=== PATIENT | female | born 1940 ===

== ENCOUNTER 2016-09-25 23:37 | Emergency (ER) | payer MEDICARE ==
[~2016-09-25] VITALS: Ht 160 cm; Wt 66.7 kg
[~2016-09-25 23:37] MED LIST: AMLO10TA2 PO; ATOR40TA64 PO; CARV25TA2 PO; CLOP75TA33 PO; FLUT16SP NAS; HYDR-4181 PO; HYDR-4246 PO; LISI10TA PO; RANI150T12 PO; SEVE800T9 PO; SUCR1TAB20 PO
--- OUTSIDE RECORDS SUMMARY | 2016-09-25 23:41 | XMS REPORT | Referral Summary ---
Author Organization Unknown Address Unknown Phone Unavailable Care Team Providers Care Arm Rest Builder Name Role Phone [facility] Primary Care Physician Unavailable Encounter [facility] [id number] Date(s): 08/22/14 - 08/22/14 [facility], Rheumatology [address] [place], [place] [address] Discharge Disposition: Home or Self Care Attending Physician: Daphney Gan MD Admitting Physician: Daphney Gan MD Vital Signs Most recent to 1 oldest [Reference Range]: Temperature Oral 36.8 degC [35.8-37.3 degC] (08/22/14 2:33 PM) Peripheral Pulse 65 bpm Rate [60-100 bpm] (08/22/14 2:33 PM) Blood Pressure 181/71 mmHg [90-140/60-90 mmHg] *HI* (08/22/14 2:33 PM) Problem List Condition Effective Dates Status Health Status Informant Chronic renal Active failure syndrome (disorder)(Confirmed ) Generalized Active osteoarthritis (disorder)(Confirmed ) Obesity(Confirmed) Active patient Allergies, Adverse Reactions, Alerts Substance Reaction Severity Status iodine Adverse Reaction Active Medications amLODIPine 5 mg oral tablet 1 tabs, Oral, Daily, # 30 tabs, 0 Refill(s) Start Date: 02/07/14 Status: Ordered atenolol 25 mg oral tablet 2 tabs, Oral, Daily, # 30 tabs, 0 Refill(s) Start Date: 02/07/14 Status: Ordered doxepin 10 mg oral capsule See Instructions, TAKE 3 CAPSULES BY MOUTH AT BEDTIME, # 90 caps, 2 Refill(s), Sondra CARRILLOx: [id number], TAKE 3 CAPSULES BY MOUTH AT BEDTIME Special Instructions: TAKE 3 CAPSULES BY MOUTH AT BEDTIME Start Date: 06/07/14 Status: Ordered HumaLOG 100 units/mL subcutaneous solution 5 units, SubCutaneous, TIDAC, # 10 mL, 0 Refill(s) Start Date: 02/07/14 Status: Ordered hydrochlorothiazide 50 mg oral tablet 1 tabs, Oral, Daily, # 30 tabs, 0 Refill(s) Start Date: 08/22/14 Status: Ordered Lantus 100 units/mL subcutaneous solution 50 units, SubCutaneous, Bedtime (once a day), 0 Refill(s) Start Date: 02/07/14 Status: Ordered [place] 10 mg-325 mg oral tablet 1 tabs, Oral, QID, # 120 tabs, 0 Refill(s) Start Date: 08/22/14 Status: Ordered spironolactone 25 mg oral tablet 2 tabs, Oral, BID, 0 Refill(s) Start Date: 02/07/14 Status: Ordered tiZANidine 4 mg oral tablet 1 tabs, Oral, Bedtime (once a day), 0 Refill(s) Start Date: 02/07/14 Status: Ordered Ultram 50 mg oral tablet 2 tabs, Oral, TID, 0 Refill(s) Start Date: 02/07/14 Status: Ordered valsartan-hydrochlorothiazide 160 mg-12.5 mg oral tablet 1 tabs, Oral, Daily, # 30 tabs, 0 Refill(s) Start Date: 02/07/14 Status: Ordered Vitamin D with Minerals oral tablet 1 tabs, Oral, Daily, 0 Refill(s) Start Date: 02/07/14 Status: Ordered Results No data available for this section Immunizations No data available for this section Procedures No data available for this section Social History Social History Type Response Smoking Status Never smoker Assessment and Plan No data available for this section
--- OUTSIDE RECORDS SUMMARY | 2016-09-25 23:41 | XMS REPORT | Referral Summary ---
Author Author [facility] Organization [facility] Address Unknown Phone Unavailable Care Team Providers Care Source Water Protection Specialist Name Role Phone [facility] Primary Care Physician Unavailable Encounter [facility] [id number] Date(s): 09/01/15 - 09/01/15 [facility] [address] [place] [address] Discharge Diagnosis: Post-operative complication Discharge Diagnosis: Cellulitis Discharge Disposition: 01-Home or Self Care Attending Physician: Vickey Becker MD Admitting Physician: Vickey Becker MD Vital Signs Most recent to 1 oldest [Reference Range]: Temperature Oral 36.4 degC [35.8-37.3 degC] (09/01/15 8:48 PM) Peripheral Pulse 77 bpm Rate [60-100 bpm] (09/01/15 11:55 PM) Heart Rate Monitored 74 bpm [60-100 bpm] (09/01/15 11:00 PM) Respiratory Rate 18 br/min [14-20 br/min] (09/01/15 11:55 PM) Blood Pressure 175/63 mmHg [90-140/60-90 mmHg] *HI* (09/01/15 11:55 PM) Mean Arterial 78 mmHg Pressure, Cuff (09/01/15 11:00 PM) SpO2 98 % (09/01/15 11:55 PM) Problem List Condition Effective Dates Status Health Status Informant Acute Active pain(Confirmed) At risk of pressure Active sore(Confirmed) Generalized Active osteoarthritis (disorder)(Confirmed ) Chronic renal Active failure syndrome (disorder)(Confirmed ) Diabetes mellitus Active with neuropathy(Confirmed ) Therapeutic drug Active monitoring(Confirmed ) Erosive Active osteoarthritis(Confi rmed) Fluid Active imbalance(Confirmed) 1 Obesity(Confirmed) Active patient Tissue perfusion Active alteration(Confirmed )2 1Problem added automatically by system based on initiation of Fluid Volume Imbalance Plan of Care 2Problem added automatically by system based on initiation of Tissue Perfusion Cerebral Plan of Care Allergies, Adverse Reactions, Alerts Substance Reaction Severity Status iodine Adverse Reaction Active Odilon epperson Active Medications amLODIPine 10 mg oral tablet 10 mg 1 tabs, Oral, Daily, # 30 tabs, 0 Refill(s) Start Date: 08/03/15 Status: Ordered aspirin 325 mg oral tablet 325 mg 1 tabs, Oral, Daily, # 30 tabs, 0 Refill(s), Pharmacy: [facility], 1 tabs Oral Daily,x30 days Start Date: 08/09/15 Stop Date: 09/08/15 Status: Ordered atorvastatin 40 mg oral tablet 40 mg 1 tabs, Oral, Daily, # 30 tabs, 0 Refill(s), 1 tabs Oral Daily,x30 days Start Date: 08/09/15 Stop Date: 09/08/15 Status: Ordered Benadryl 50 mg, Oral, BID, as needed for allergy symptoms, 0 Refill(s) Start Date: 08/03/15 Status: Ordered carvedilol 25 mg oral tablet 25 mg 1 tabs, Oral, BID, # 60 tabs, 0 Refill(s), other reason (Rx) Start Date: 08/13/15 Status: Ordered hydrALAZINE 50 mg oral tablet 50 mg 1 tabs, Oral, QID, # 120 tabs, 0 Refill(s), 1 tabs Oral QID,x30 days Start Date: 08/09/15 Stop Date: 09/08/15 Status: Ordered Plavix 75 mg oral tablet 75 mg 1 tabs, Oral, Daily, # 30 tabs, 0 Refill(s), 1 tabs Oral Daily,x30 days Start Date: 08/09/15 Stop Date: 09/08/15 Status: Ordered sevelamer carbonate 800 mg oral tablet 1,600 mg 2 tabs, Oral, TIDWM, # 180 tabs, 0 Refill(s) Start Date: 08/09/15 Stop Date: 09/08/15 Status: Ordered Results No data available for this section Immunizations No data available for this section Procedures Procedure Date Related Diagnosis Body Site Creation Fistula Arterial Venous Arm1 08/08/15 Insertion Dialysis Catheter (Right)2 08/08/15 Catheterization Heart Coronary Intervention 08/06/15 (Left, Groin)3 Catheterization Left Heart with Coronary 08/06/15 Angiography (Groin, Left)4 Cataract extraction - L 05/23/09 Excision and prosthetic replacement of lens - 05/23/09 L CABG - Coronary artery bypass graft 2002 Cholecystectomy Hysterectomy 1auto-populated from documented surgical case 2auto-populated from documented surgical case 3auto-populated from documented surgical case 4auto-populated from documented surgical case Social History Social History Type Response Smoking Status Never smoker Assessment and Plan No data available for this section
--- OUTSIDE RECORDS SUMMARY | 2016-09-25 23:41 | XMS REPORT | Continuity of Care Document ---
Author Author [facility] Organization [facility] Address Unknown Phone Unavailable Support Name Relationship Address Phone JANICE KEVIN MD Caregiver [address] [place] [address] [address] [place] [phone] BRANDON SUTHERLAND Next Of Kin [address] [place] [address] Insurance Providers Payer Name Policy Number Subscriber Name Relationship Medicareadvantra Ppo [id number] Dot Sutherland 17 Self Problems Medical Problems Problem Onset Date Status Edema extremities Unknown Active UTI (urinary tract infection) Unknown Active Diabetes type 2, uncontrolled Unknown Active Elevated blood pressure Unknown Active Edema extremities Unknown Active Medications Medication Dose Route Sig Days/Qty Instructions Order Date Discontinued Date Status Atenolol 90 Qty 07/13/14 Active Amlodipine Besylate 90 Qty 07/13/14 Active Hydrocodone/Acetaminophen 1 FOUR TIMES DAILY 120 Qty 07/13/14 Active Tramadol HCl 1 EVERY 4-6 HOURS 180 Qty 07/13/14 Active Social History Social History Problem Response Recorded Date/Time Hx Substance Use No 07/13/2014 5:32pm Hx Alcohol Use No 07/13/2014 5:32pm Query Response Start Date Stop Date Smoking Status Never smoker Hospital Discharge Instructions No hospital discharge instructions. Plan of Care No plan of care. Functional Status Query Response Date Recorded Physical Hygiene Self July 13, 2014 5:32pm Disabilities None July 13, 2014 5:32pm Devices Used None July 13, 2014 5:32pm Dressing Self July 13, 2014 5:32pm Ambulation Self July 13, 2014 5:32pm Diet Self July 13, 2014 5:32pm Mental Status Alert Oriented July 13, 2014 7:25pm Disabilities None July 13, 2014 5:32pm Devices Used None July 13, 2014 5:32pm Physical Hygiene Self July 13, 2014 5:32pm Dressing Self July 13, 2014 5:32pm Ambulation Self July 13, 2014 5:32pm Diet Self July 13, 2014 5:32pm Allergies, Adverse Reactions, Alerts Allergen Type Severity Reaction Status Last Updated nalbuphine HCl Allergy Unknown Active 07/13/14 Iodine Allergy Unknown Active 07/13/14 Immunizations Name Given Type Hx Influenza Vaccination No Historical Hx Influenza Vaccination No Historical Vital Signs Acute Vital Signs Vital Response Date/Time Temperature (Fahrenheit) 97.7 deg F (96.8 - 99.1) Temperature (Calculated Celsius) 36.64063 degrees C (36.0 - 37.3) Pulse Rate (adult) 64 bpm (60 - 100) Respiratory Rate 16 breaths/min (10 - 20) O2 Sat by Pulse Oximetry 98 % (90 - 100) Blood Pressure 187/76 mm Hg Height 5 ft 3 in Weight 169 lb Body Mass Index 29.0 kg/m^2 Results Test Source Date Result Interp. Ref. Range Comments Activated Partial Thromboplast Time August 07, 2012 10:40pm 31.1 SEC N 24-36 Alanine Aminotransferase (ALT/SGPT) July 13, 2014 5:31pm 16 U/L N 9- 52 Albumin July 13, 2014 5:31pm 2.7 G/DL L 3.5-5.0 Albumin/Globulin Ratio July 13, 2014 5:31pm 0.9 RATIO L 1.1-2.2 Alkaline Phosphatase July 13, 2014 5:31pm 97 U/L N 38-126 Anion Gap July 13, 2014 5:31pm 2 MEQ/L L 5-15 Aspartate Amino Transf (AST/SGOT) July 13, 2014 5:31pm 18 U/L N 14- 36 BUN/Creatinine Ratio July 13, 2014 5:31pm 13 RATIO N 6-26 Basophils # (Auto) July 13, 2014 5:31pm 0.1 T/MM3 N 0-0.2 Basophils (%) (Auto) July 13, 2014 5:31pm 0.6 % N 0-2 Blood Urea Nitrogen July 13, 2014 5:31pm 23.0 MG/DL H 7-17 Calcium Level July 13, 2014 5:31pm 8.8 MG/DL N 8.4-10.2 Calculated Osmolality July 13, 2014 5:31pm 273 MOSM/KG N 261-280 Carbon Dioxide Level July 13, 2014 5:31pm 26 MEQ/L N 22-30 Chloride Level July 13, 2014 5:31pm 105 MEQ/L N 98-107 Conjugated Bilirubin August 07, 2012 10:40pm 0.00 MG/DL N 0.00-0.30 Creatinine July 13, 2014 5:31pm 1.8 MG/DL H 0.7-1.2 Eosinophils # (Auto) July 13, 2014 5:31pm 0.2 T/MM3 N 0-0.5 Eosinophils (%) (Auto) July 13, 2014 5:31pm 2.1 % N 0-4 Globulin July 13, 2014 5:31pm 3.1 G/DL N 2.4-3.6 Glucose Level July 13, 2014 5:31pm 324 MG/DL H 65-110 Hematocrit July 13, 2014 5:31pm 32.5 % L 36-46 Hemoglobin July 13, 2014 5:31pm 11.0 GM/DL L 12-16 Lymphocytes # (Auto) July 13, 2014 5:31pm 1.9 T/MM3 N 1-4.8 Lymphocytes (%) (Auto) July 13, 2014 5:31pm 20.2 % L 23-45 Mean Corpuscular Hemoglobin July 13, 2014 5:31pm 30.4 UUG N 26-34 Mean Corpuscular Hemoglobin Concent July 13, 2014 5:31pm 33.8 GM/DL N 31-37 Mean Corpuscular Volume July 13, 2014 5:31pm 89.8 UM3 N 80-100 Mean Platelet Volume July 13, 2014 5:31pm 8.8 UM3 L 9.4-12.4 Monocytes # (Auto) July 13, 2014 5:31pm 0.4 T/MM3 N 0-0.8 Monocytes (%) (Auto) July 13, 2014 5:31pm 3.8 % N 0-9.0 Neutrophils # (Auto) July 13, 2014 5:31pm 7.0 T/MM3 N 1.8-7.7 Neutrophils (%) (Auto) July 13, 2014 5:31pm 73.1 % H 33-66 Platelet Count July 13, 2014 5:31pm 291 T/MM3 N 130-400 Potassium Level July 13, 2014 5:31pm 4.4 MEQ/L N 3.6-5 Prothromb Time International Ratio August 07, 2012 10:40pm 0.95 N 0.86 -1.10 THERAPUTIC RANGE=2.00-3.00 FOR ANTI-THROMBOSIS THERAPUTIC RANGE=2.50- 3.50 FOR IMPLANTED VALVE RDW Standard Deviation July 13, 2014 5:31pm 40.6 FL N 36.9-50.2 Red Blood Count July 13, 2014 5:31pm 3.62 M/MM3 L 4.00-5.20 Sodium Level July 13, 2014 5:31pm 133 MEQ/L L 134-144 Total Bilirubin July 13, 2014 5:31pm 0.40 MG/DL N 0.20-1.30 Total Protein July 13, 2014 5:31pm 5.8 G/DL L 6.3-8.2 Troponin I July 13, 2014 5:31pm < 0.012 ng/ml 0-0.12 Unconjugated Bilirubin August 07, 2012 10:40pm 0.00 MG/DL N 0.00-1.10 Urine Bacteria July 13, 2014 5:57pm 2+ H - Has specimen been collected/obtained? Y Urine Bilirubin July 13, 2014 5:57pm Negative - Has specimen been collected/obtained? Y Urine Blood July 13, 2014 5:57pm 1+ H - Has specimen been collected/ obtained? Y Urine Collection Type July 13, 2014 5:57pm Cleancatch-midstream - Has specimen been collected/obtained? Y Urine Color July 13, 2014 5:57pm Yellow - Has specimen been collected/obtained? Y Urine Culture Indicated July 13, 2014 5:57pm Cult reflexed &setup - Has specimen been collected/obtained? Y Urine Glucose (UA) July 13, 2014 5:57pm 3+ H - Has specimen been collected/obtained? Y Urine Ketones July 13, 2014 5:57pm Negative - Has specimen been collected/obtained? Y Urine Leukocyte Esterase July 13, 2014 5:57pm Negative - Has specimen been collected/obtained? Y Urine Nitrite July 13, 2014 5:57pm Positive H - Has specimen been collected/obtained? Y Urine Protein July 13, 2014 5:57pm 3+ H - Has specimen been collected/obtained? Y Urine RBC July 13, 2014 5:57pm 1-3 /HPF - Has specimen been collected/obtained? Y Urine Specific [place] July 13, 2014 5:57pm 1.020 - Has specimen been collected/obtained? Y Urine Squamous Epithelial Cells July 13, 2014 5:57pm 5-10 - Has specimen been collected/obtained? Y Urine Turbidity July 13, 2014 5:57pm Clear - Has specimen been collected/obtained? Y Urine Urobilinogen July 13, 2014 5:57pm 0.2 EU/DL - Has specimen been collected/obtained? Y Urine WBC July 13, 2014 5:57pm 10-20 /HPF H - Has specimen been collected/obtained? Y Urine pH July 13, 2014 5:57pm 6.5 - Has specimen been collected/ obtained? Y White Blood Count July 13, 2014 5:31pm 9.5 T/MM3 N 4.5-11.0 Chemistry Specimen Hemolysis July 13, 2014 5:31pm < 15 0-25 0-25: No Hemolysis.26-70: Slight Hemolysis - can falsely elevate K and Urine Protein. 71-285: Moderate Hemolysis - can falsely elevate K, Troponin I, CA 19-9, PTH, CSF GLucose, and Urine Protein, and can falsely decrease Phenytoin. 286-999: Gross Hemolysis - can falsely elevate K, Troponin I, CA 19-9, PTH, CSF Glucose, and Urine Protine, and can falsely decrease Phenytoin. Recommend specimen recollection. Turbidity July 13, 2014 5:31pm < 20 0-20 Glomerular Filtration Rate Calc July 13, 2014 5:31pm 27 - Immature Granulocyte # (Auto) July 13, 2014 5:31pm 0.02 T/MM3 N 0.00- 0.03 Immature Granulocyte % (Auto) July 13, 2014 5:31pm 0.2 % N 0.0-0.5 Icterus Index July 13, 2014 5:31pm < 2 0-7 PT-Trr-K-Type Natriuretic Peptide July 13, 2014 5:31pm 4760 PG/ML H 0 -175 Rule in cut points: <50 years old=450; 50-75 years old=900; >75 years old=1800; When utilizing ProBNP rule-in cut points, adjustment for impaired renal function is typically not required. Procedures No known history of procedures. Encounters Encounter Location Date/Time Departed Emergency Room [facility] 07/13/14 4:28pm Recent Diagnosis
--- OUTSIDE RECORDS SUMMARY | 2016-09-25 23:41 | XMS REPORT | Referral Summary ---
Author Author [facility] Organization [facility] Address Unknown Phone Unavailable Care Team Providers Care Triage Clinician Name Role Phone [facility] Primary Care Physician Unavailable Encounter [facility] [id number] Date(s): 07/18/15 - 07/18/15 [facility], Rheumatology [address] [place], [place] [address] Discharge Diagnosis: Chronic renal failure syndrome (disorder) Discharge Diagnosis: Diabetes mellitus with neuropathy Discharge Diagnosis: Generalized osteoarthritis (disorder) Discharge Diagnosis: Erosive osteoarthritis Discharge Diagnosis: Therapeutic drug monitoring Discharge Disposition: 01-Home or Self Care Attending Physician: Daphney Gan MD Admitting Physician: Daphney Gan MD Vital Signs Most recent to 1 oldest [Reference Range]: Temperature Oral 36.6 degC [35.8-37.3 degC] (07/18/15 3:25 PM) Peripheral Pulse 61 bpm Rate [60-100 bpm] (07/18/15 3:25 PM) Blood Pressure 122/79 mmHg [90-140/60-90 mmHg] (07/18/15 3:25 PM) Problem List Condition Effective Dates Status Health Status Informant Generalized Active osteoarthritis (disorder)(Confirmed ) Chronic renal Active failure syndrome (disorder)(Confirmed ) Diabetes mellitus Active with neuropathy(Confirmed ) Therapeutic drug Active monitoring(Confirmed ) Erosive Active osteoarthritis(Confi rmed) Obesity(Confirmed) Active patient Allergies, Adverse Reactions, Alerts Substance Reaction Severity Status iodine Adverse Reaction Active Nubain Active Medications amLODIPine 5 mg oral tablet 1 tabs, Oral, Daily, # 30 tabs, 0 Refill(s) Start Date: 02/07/14 Status: Ordered atenolol 25 mg oral tablet 2 tabs, Oral, Daily, # 30 tabs, 0 Refill(s) Start Date: 02/07/14 Status: Ordered doxepin 10 mg oral capsule See Instructions, TAKE 3 CAPSULES BY MOUTH AT BEDTIME, # 90 caps, 1 Refill(s), eRx: [id number], TAKE 3 CAPSULES BY MOUTH AT BEDTIME Start Date: 04/11/15 Status: Ordered HumaLOG 100 units/mL subcutaneous solution 5 units, SubCutaneous, TIDAC, # 10 mL, 0 Refill(s) Start Date: 02/07/14 Status: Ordered hydrochlorothiazide 50 mg oral tablet 1 tabs, Oral, Daily, # 30 tabs, 0 Refill(s) Start Date: 08/22/14 Status: Ordered Lantus 100 units/mL subcutaneous solution 50 units, SubCutaneous, Bedtime (once a day), 0 Refill(s) Start Date: 02/07/14 Status: Ordered [place] 10 mg-325 mg oral tablet 1 tabs, Oral, QID, # 120 tabs, 0 Refill(s) Start Date: 06/25/15 Status: Ordered spironolactone 25 mg oral tablet 2 tabs, Oral, BID, 0 Refill(s) Start Date: 02/07/14 Status: Ordered tiZANidine 4 mg oral tablet 1 tabs, Oral, Bedtime (once a day), 0 Refill(s) Start Date: 02/07/14 Status: Ordered Ultram 50 mg oral tablet 100 mg 2 tabs, Oral, TID, # 180 tabs, 0 Refill(s), called to pharmacy (Rx) Start Date: 05/24/15 Status: Ordered valsartan-hydrochlorothiazide 160 mg-12.5 mg oral tablet 1 tabs, Oral, Daily, # 30 tabs, 0 Refill(s) Start Date: 02/07/14 Status: Ordered Vitamin D with Minerals oral tablet 1 tabs, Oral, Daily, 0 Refill(s) Start Date: 02/07/14 Status: Ordered Results Hematology Most recent to 1 oldest [Reference Range]: WBC [4.8-10.8 10.5 10*3/uL 10*3/uL] (07/18/15 3:55 PM) RBC [4.00-5.20] 2.82 *LOW* (07/18/15 3:55 PM) Hgb [12.0-16.0 8.4 gm/dL gm/dL] *LOW* (07/18/15 3:55 PM) Hct [37.0-47.0 %] 26.4 % *LOW* (07/18/15 3:55 PM) MCV [82.0-99.0 fL] 93.6 fL (07/18/15 3:55 PM) MCH [27.0-32.0 pg] 29.8 pg (07/18/15 3:55 PM) MCHC [32.0-36.0 31.8 gm/dL gm/dL] *LOW* (07/18/15 3:55 PM) RDW [11.5-14.5 %] 13.1 % (07/18/15 3:55 PM) Platelet [150-400 352 10*3/uL 10*3/uL] (07/18/15 3:55 PM) MPV [8.8-14.8 fL] 9.4 fL (07/18/15 3:55 PM) Immature 0.4 % Granulocytes (07/18/15 3:55 PM) [0.0-1.0 %] Neutrophils [51-75 72 % %] (07/18/15 3:55 PM) Lymphocytes [20-46 14 % %] *LOW* (07/18/15 3:55 PM) Monocytes [4-11 %] 7 % (07/18/15 3:55 PM) Eosinophils [0-4 %] 6 % *HI* (07/18/15 3:55 PM) Basophils [0-2 %] 1 % (07/18/15 3:55 PM) Neutro Absolute 7.51 10*3 [1.90-7.00 10*3] *HI* (07/18/15 3:55 PM) Lymph Absolute 1.50 10*3 [0.80-3.30 10*3] (07/18/15 3:55 PM) [place] Absolute 0.78 10*3 [0.30-1.00 10*3] (07/18/15 3:55 PM) Eos Absolute 0.60 10*3 [0.00-0.50 10*3] *HI* (07/18/15 3:55 PM) Baso Absolute 0.07 10*3 [0.00-0.20 10*3] (07/18/15 3:55 PM) Sed Rate [0-23] 58 *HI* (07/18/15 3:55 PM) Chemistry Most recent to 1 oldest [Reference Range]: Sodium Lvl [135-144 134 mEq/L mEq/L] *LOW* (07/18/15 3:55 PM) Potassium Lvl 5.3 mEq/L [3.5-5.2 mEq/L] *HI* (07/18/15 3:55 PM) Chloride [99-111 104 mEq/L mEq/L] (07/18/15 3:55 PM) CO2 [22-31 mEq/L] 15 mEq/L *LOW* (07/18/15 3:55 PM) AGAP [3-20] 15 (07/18/15 3:55 PM) BUN [10-20 mg/dL] 90 mg/dL *HI* (07/18/15 3:55 PM) Glucose Lvl [70-99 114 mg/dL mg/dL] *HI* (07/18/15 3:55 PM) Creatinine Lvl 6.75 mg/dL [0.57-1.11 mg/dL] *HHI* (07/18/15 3:55 PM) eGFR [>60 mL/min] 6 mL/min 1 *ABN* (07/18/15 3:55 PM) Calcium Lvl 8.3 mg/dL [8.9-10.5 mg/dL] *LOW* (07/18/15 3:55 PM) Albumin Lvl [3.4-4.8 3.5 gm/dL gm/dL] (07/18/15 3:55 PM) Total Protein 6.7 gm/dL [6.2-8.1 gm/dL] (07/18/15 3:55 PM) Globulin [1.8-4.0 3.2 gm/dL gm/dL] (07/18/15 3:55 PM) ALT [0-55 U/L] 8 U/L (07/18/15 3:55 PM) AST [5-34 U/L] 13 U/L (07/18/15 3:55 PM) Alk Phos [40-150 66 U/L U/L] (07/18/15 3:55 PM) Bili Total [0.2-1.2 0.3 mg/dL mg/dL] (07/18/15 3:55 PM) 1Result Comment: Multiply eGFR results by 1.21 for race. Urinalysis Most recent to 1 oldest [Reference Range]: UA Color Yellow (07/18/15 3:55 PM) UA Appear Turbid *ABN* (07/18/15 3:55 PM) UA pH [5.0-8.0] 5.5 (07/18/15 3:55 PM) UA Leuk Est Pos 2+ [Negative] *ABN* (07/18/15 3:55 PM) UA Nitrite Negative [Negative] (07/18/15 3:55 PM) UA Protein Pos 3+ [Negative] *ABN* (07/18/15 3:55 PM) UA Glucose Trace [Negative] *ABN* (07/18/15 3:55 PM) UA Ketones Negative [Negative] (07/18/15 3:55 PM) UA Urobilinogen 0.2 mg/dL [<1.0 mg/dL] (07/18/15 3:55 PM) UA Bili [Negative] Negative (07/18/15 3:55 PM) UA Blood [Negative] Pos 3+ *ABN* (07/18/15 3:55 PM) UA Spec Grav 1.018 [1.003-1.030] (07/18/15 3:55 PM) Type Clean Catch (07/18/15 3:55 PM) UA WBC [0-4 /HPF] >50 /HPF *ABN* (07/18/15 3:55 PM) UA RBC [0-4] 20-50 *ABN* (07/18/15 3:55 PM) Epithelial Cells 5-10 (07/18/15 3:55 PM) UA Bacteria Numerous *ABN* (07/18/15 3:55 PM) UA Hyal Cast [0-3] 1-3 (07/18/15 3:55 PM) Immunizations No data available for this section Procedures Procedure Date Related Diagnosis Body Site Cataract extraction - L 05/23/09 Excision and prosthetic replacement of lens - 05/23/09 L CABG - Coronary artery bypass graft 2002 Cholecystectomy Hysterectomy Social History Social History Type Response Smoking Status Never smoker Assessment and Plan Extracted from: Title: Office Visit Note Author: Daphney Gan MD Date: 07/18/15 Assessment/Plan 1.Erosive osteoarthritis Ordered: C-Reactive Protein (CRP) CBC w/ Differential Comprehensive Metabolic Panel Office Visit Level 4 Est 56239 Sedimentation Rate Urinalysis with Culture if Indicated 2.Diabetes mellitus with neuropathy Ordered: C-Reactive Protein (CRP) CBC w/ Differential Comprehensive Metabolic Panel Office Visit Level 4 Est 38229 Sedimentation Rate Urinalysis with Culture if Indicated 3.Chronic renal failure syndrome (disorder) Ordered: C-Reactive Protein (CRP) CBC w/ Differential Comprehensive Metabolic Panel Office Visit Level 4 Est 16857 Sedimentation Rate Urinalysis with Culture if Indicated 4.Generalized osteoarthritis (disorder) Ordered: C-Reactive Protein (CRP) CBC w/ Differential Comprehensive Metabolic Panel Office Visit Level 4 Est 56317 Sedimentation Rate Urinalysis with Culture if Indicated 5.Therapeutic drug monitoring
--- OUTSIDE RECORDS SUMMARY | 2016-09-25 23:42 | XMS REPORT | Referral Summary ---
Author Author [facility] Organization [facility] Address Unknown Phone Unavailable Care Team Providers Care Setter Up Name Role Phone [facility], [facility] Primary Care Physician Unavailable Encounter [facility] [id number] Date(s): 11/06/15 - 11/06/15 [facility] [address] [place] [address] [place] [address] Discharge Diagnosis: Osteoarthritis Discharge Diagnosis: ESRD on hemodialysis Discharge Diagnosis: Fibromyalgia Discharge Diagnosis: Chronic pain syndrome Discharge Disposition: 01-Home or Self Care Attending Physician: Cony Mendes MD Admitting Physician: Cony Mendes MD Vital Signs Most recent to 1 oldest [Reference Range]: Peripheral Pulse 72 bpm Rate [60-100 bpm] (11/06/15 3:28 PM) Respiratory Rate 16 br/min [14-20 br/min] (11/06/15 3:28 PM) Blood Pressure 162/72 mmHg [90-140/60-90 mmHg] *HI* (11/06/15 3:28 PM) Problem List Condition Effective Dates Status [...] Severity Status iodine Adverse Reaction Active Nubain crazy Active Medications amLODIPine 10 mg oral tablet [...] Date: 08/09/15 Stop Date: 09/08/15 Status: Ordered lisinopril 10 mg oral tablet mg tabs, Oral, Daily, 0 Refill(s) Start Date: 11/06/15 Status: Ordered [place] 10 mg-325 mg oral tablet 1 tabs, Oral, QID, as needed for pain, # 120 tabs, 0 Refill(s) Start Date: 11/06/15 Status: Ordered Plavix 75 mg oral tablet [...]
--- OUTSIDE RECORDS SUMMARY | 2016-09-25 23:42 | XMS REPORT | Referral Summary ---
Author Author [facility] Care Organization [facility] Address Unknown Phone Unavailable Care Team Providers Care Unclaimed Property Manager Name Role Phone No PCP, States Primary Care Physician [phone] Encounter [facility] Date(s): 01/31/16 - 01/31/16 [facility] [address] [place] [address] Discharge Disposition: 01-Home or Self Care Attending Physician: Wisam Whitten PA-C Admitting Physician: Wisam Whitten PA-C Vital Signs No data available for this section Problem List Condition Effective Dates Status Health [...] Reaction Severity Status iodine Adverse Reaction Active Nudeyanira epperson Active Medications amLODIPine 10 mg oral tablet 10 mg 1 tabs, Oral, Daily, # 30 tabs, 0 Refill(s) Start Date: 08/03/15 Status: Ordered aspirin 325 mg oral tablet 325 mg 1 tabs, Oral, Daily, # 30 tabs, 0 Refill(s), Pharmacy: [facility] [place] [place], 1 tabs Oral Daily,x30 days Start Date: [...] 0 Refill(s) Start Date: 11/06/15 Status: Ordered [place] 10 mg-325 mg oral tablet 1 tabs, [...] smoker Assessment and Plan Extracted from: Title: referral to ER Author: Dot Coronado RN Date: 01/31/16 Pt came to immediate care to be seen for abdominal pain. She began to report other various problems (diabebes, kidney, fibramyalgia) and areas of pain. Due to her complex health nature and severity of pain, she was referred to ER.
--- OUTSIDE RECORDS SUMMARY | 2016-09-25 23:42 | XMS REPORT | Referral Summary ---
Author Author [facility] Organization [facility] Address Unknown Phone Unavailable Care Team Providers Care Central Office Operator Name Role Phone [facility], [facility] Primary Care Physician Unavailable Encounter [facility] [id number] Date(s): 03/07/15 - 03/07/15 [facility] [address] [place], [place] [address] Discharge Diagnosis: Therapeutic drug monitoring Discharge Diagnosis: Chronic renal failure syndrome Discharge Diagnosis: Erosive osteoarthritis Discharge Disposition: 01-Home or Self Care Attending Physician: Daphney Gan MD Admitting Physician: Daphney Gan MD Vital Signs Most recent to 1 oldest [Reference Range]: Temperature Oral 37.0 degC [35.8-37.3 degC] (03/07/15 2:09 PM) Peripheral Pulse 113 bpm Rate [60-100 bpm] *HI* (03/07/15 2:09 PM) Blood Pressure 147/70 mmHg [90-140/60-90 mmHg] *HI* (03/07/15 2:09 PM) Problem List Condition Effective Dates Status Health Status Informant Chronic renal Active failure syndrome (disorder)(Confirmed ) Generalized Active osteoarthritis (disorder)(Confirmed ) Diabetes mellitus Active with neuropathy(Confirmed [...] BEDTIME, # 90 caps, 1 Refill(s), eRx: [id number], TAKE 3 CAPSULES BY MOUTH AT BEDTIME [...] 0 Refill(s) Start Date: 02/07/14 Status: Ordered [place] 10 mg-325 mg oral tablet 1 tabs, Oral, QID, # 120 tabs, 0 Refill(s) Start Date: 04/23/15 Status: Ordered spironolactone 25 mg oral tablet [...] L CABG - Coronary artery bypass graft 2003 Cholecystectomy Hysterectomy Social History Social History Type Response Smoking Status Never smoker Assessment and Plan Extracted from: Title: Office Visit Note Author: Daphney Gan MD Date: 03/07/15 Assessment/Plan 1.Erosive osteoarthritis Ordered: Office Visit Level 4 Est 09043 2.Chronic renal failure syndrome Ordered: Office Visit Level 4 Est 54839 3.Therapeutic drug monitoring Ordered: Office Visit Level 4 Est 68147
--- OUTSIDE RECORDS SUMMARY | 2016-09-25 23:42 | XMS REPORT | Referral Summary ---
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 Discharge Diagnosis: Chronic kidney disease, stage III (moderate) Discharge Diagnosis: Diabetes mellitus with neuropathy Discharge Disposition: 01-Home or Self Care Attending Physician: Daphney Gan MD Admitting Physician: Daphney Gan MD Referring Physician: [facility] Vital Signs Most recent to 1 oldest [Reference Range]: Temperature Oral 36.9 degC [35.8-37.3 degC] (10/09/15 3:05 PM) Peripheral Pulse 70 bpm Rate [60-100 bpm] (10/09/15 3:05 PM) Blood Pressure 152/60 mmHg [90-140/60-90 mmHg] *HI* (10/09/15 3:05 PM) Problem List Condition Effective Dates Status [...] Coronary artery bypass graft 2003 Cholecystectomy Hysterectomy 1auto-populated from documented surgical case 2auto-populated from documented surgical case 3auto-populated from documented surgical case 4auto-populated from documented surgical case Social History Social History Type Response Smoking Status Never smoker Assessment and Plan Extracted from: Title: Office Visit Note Author: Daphney Gan MD Date: 10/09/15 Assessment/Plan 1.Erosive osteoarthritis Ordered: Office Visit Level 4 Est 42185 2.Marion's nodes Ordered: Office Visit Level 4 Est 69034 3.Diabetes mellitus with neuropathy Ordered: Office Visit Level 4 Est 92480 4.Chronic kidney disease, stage III (moderate) Ordered: Office Visit Level 4 Est 48377
--- OUTSIDE RECORDS SUMMARY | 2016-09-25 23:42 | XMS REPORT | Referral Summary ---
Author Author [facility] Organization [facility] Address Unknown Phone Unavailable Care Team Providers Care Patent Clerk Name Role Phone [facility], [facility] Primary Care Physician Unavailable Encounter [facility] [id number] Date(s): 03/07/15 - 03/07/15 [facility] [address] [place], [place] [address] Discharge Diagnosis: Therapeutic drug monitoring Discharge Diagnosis: [...] osteoarthritis Ordered: Office Visit Level 4 Est 22502 2.Chronic renal failure syndrome Ordered: Office Visit Level 4 Est 51318 3.Therapeutic drug monitoring Ordered: Office Visit Level 4 Est 28621
--- OUTSIDE RECORDS SUMMARY | 2016-09-25 23:42 | XMS REPORT | Continuity of Care Document ---
Author Author Janine Bal MA [facility] Address [address] [place] [address] Phone Care Team Providers Care Belly Dancer Name Role Phone [facility], . PP Unavailable Payers Payer name Insurance type Covered green party ID Authorization(s) Unknown Problems Condition Effective Dates (start - stop) Clinical Status Osteoarthrosis, generalized, involving unspecified site - * Chronic Other disorders of bone and cartilage - *Chronic Diabetic Neuropathy - *Chronic Chronic kidney disease, unspecified - *Chronic Osteoarthrosis, generalized, involving unspecified site - Chronic Other disorders of bone and cartilage - Chronic Diabetic Neuropathy - Chronic Chronic kidney disease, unspecified - Chronic Chronic kidney disease, unspecified - *Chronic Therapeutic Drug Monitoring - *Chronic Other disorders of bone and cartilage - *Chronic Osteoarthrosis, generalized, involving unspecified site - * Chronic Diabetic Neuropathy - *Chronic LENS REPLACEMENT NEC - Osteoarthrosis, generalized, involving unspecified site - * Chronic Other disorders of bone and cartilage - *Chronic Pain in joint, site unspecified - *Chronic Diabetes mellitus with neuropathy - *Chronic Polyneuropathy in diabetes - *Chronic Therapeutic Drug Monitoring - *Chronic Family History Family Member Diagnosis Age At Onset Status Unknown Social History Social History Element Description Quantity Unknown Allergies, Adverse Reactions, Alerts Substance Reaction Severity Status Unknown Medications Medication Instructions Dosage Effective Dates (start - stop) Status amlodipine 5 mg tablet take 1 tablet (5MG) by oral route every day 5 MG - Active atenolol 25 mg tablet take 1 tablet (25MG) by oral route every day 25 MG - Active Lantus 100 unit/mL subcutaneous solution inject 50 by subcutaneous route every bedtime as per insulin protocol 0 - Active Humalog 100 unit/mL subcutaneous solution inject 5 units by subcutaneous route 3 times every day with meals 0 - Active spironolactone 25 mg tablet take 2 Tablet (50MG) by oral route 2 times every day 50 MG - Active sulfamethoxazole 800 mg-trimethoprim 160 mg tablet take 1 tablet by oral route every 12 hours 0 - Active valsartan 160 mg-hydrochlorothiazide 12.5 mg tablet take 1 tablet by oral route every day 0 - Active Vitamin D3 2,000 unit tablet take 1 Tablet by Oral route every day 0 - Active tizanidine 4 mg tablet Take 1 tablet by mouth at bedtime. - Active doxepin 10 mg capsule take 3 po at hs - Active [place] 10 mg-325 mg tablet take 1 tablet by oral route 4 times every day as needed for pain 0 - Active Ultram 50 mg tablet Take 2 tablets by mouth 3 times a day. - Active Immunizations Vaccine Date Status Comments Unknown Results Test Name Date and Time Measure Units Reference Range Abnormal Flag Comments Unknown Vital Signs Date / Time: Height Weight Pulse Rate Blood Pressure Temperature /07:09:00 61.00 in 163.00 lbs 62 /min 127/67 mm[Hg] 97.3 F Procedures Procedure Date Unknown Encounters Encounter Location Date Patient Visit [facility] Rhe[facility] Patient Visit [facility] Rheum Patient Visit [facility] Rheum Patient Visit [facility] Patient Visit [facility] Rheum Patient Visit Conversion Patient Visit [facility] Rheum Advance Directives Directive Effective Date Unknown
--- OUTSIDE RECORDS SUMMARY | 2016-09-25 23:42 | XMS REPORT | Referral Summary ---
Author Author [facility] Organization [facility] Address Unknown Phone Unavailable Care Team Providers Care Street Sweeper Operator Name Role Phone [facility], [facility] Primary Care Physician Unavailable Encounter [facility] [id number] Date(s): 08/03/15 - 08/13/15 [facility] [address] [place] [address] [phone] Discharge Diagnosis: Sepsis Discharge Diagnosis: End stage renal disease Discharge Diagnosis: Non-ST elevation NM (NSTEMI) Discharge Diagnosis: Acute UTI Discharge Disposition: -Group Home Facility Attending Physician: Raz Sung MD Admitting Physician: Kajal Panda MD Vital Signs Most recent to 1 oldest [Reference Range]: Temperature Oral 36.8 degC [35.8-37.3 degC] (08/13/15 7:58 AM) Temperature Skin 36.1 degC [36-37 degC] (08/08/15 3:08 PM) Temperature Temporal 36.6 degC Artery [36.3-37.8 (08/08/15 9:21 PM) degC] Peripheral Pulse 0 bpm Rate [60-100 bpm] *LOW* (08/13/15 1:00 PM) Peripheral Pulse 63 bpm Rate with Activity (08/05/15 1:43 PM) Heart Rate Monitored 83 bpm [60-100 bpm] (08/11/15 3:25 PM) Respiratory Rate 16 br/min [14-20 br/min] (08/13/15 7:58 AM) Blood Pressure 126/41 mmHg [90-140/60-90 mmHg] (08/13/15 7:58 AM) Systolic Blood 203 mmHg Pressure with (08/05/15 1:43 PM) Activity Diastolic Blood 73 mmHg Pressure with (08/05/15 1:43 PM) Activity Mean Arterial 89 mmHg Pressure, Cuff (08/08/15 8:45 PM) Blood Pressure 153/46 mmHg Invasive *HI* [90-140/60-90 mmHg] (08/08/15 8:45 PM) Mean Arterial 91 mmHg Pressure, Invasive (08/08/15 8:45 PM) SpO2 97 % (08/13/15 7:58 AM) Problem List Condition Effective Dates Status Health [...] 08/09/15 Stop Date: 09/08/15 Status: Ordered Results Blood Gases Most recent to 1 oldest [Reference Range]: pH [7.35-7.45] 7.26 *LOW* (08/03/15 5:14 PM) pCO2 Art [35-45 25 mmHg mmHg] *LOW* (08/03/15 5:14 PM) Bicarbonate [22-26 11 mEq/L mEq/L] *LOW* (08/03/15 5:14 PM) Base Excess Art -15 [0-2] *LOW* (08/03/15 5:14 PM) O2 Sat Art 95.8 % [90.0-97.0 %] (08/03/15 5:14 PM) pO2 Art [80-100 99 mmHg mmHg] (08/03/15 5:14 PM) O2 Panel Room Air (08/03/15 5:14 PM) Spec Site Radial-L (08/03/15 5:14 PM) Hematology Most recent to 1 oldest [Reference Range]: WBC [4.8-10.8 11.3 10*3/uL 10*3/uL] *HI* (08/13/15 6:59 AM) RBC [4.00-5.20] 2.49 *LOW* (08/13/15 6:59 AM) Hgb [12.0-16.0 7.5 gm/dL gm/dL] *LOW* (08/13/15 6:59 AM) Hct [37.0-47.0 %] 23.3 % *LOW* (08/13/15 6:59 AM) MCV [82.0-99.0 fL] 93.6 fL (08/13/15 6:59 AM) MCH [27.0-32.0 pg] 30.1 pg (08/13/15 6:59 AM) MCHC [32.0-36.0 32.2 gm/dL gm/dL] (08/13/15 6:59 AM) RDW [11.5-14.5 %] 16.2 % *HI* (08/13/15 6:59 AM) Platelet [150-400 229 10*3/uL 10*3/uL] (08/13/15 6:59 AM) MPV [9.4-12.4 fL] 8.9 fL *LOW* (08/13/15 6:59 AM) Immature 0.5 % Granulocytes (08/09/15 6:45 PM) [0.0-1.0 %] Neutrophils [51-75 86 % %] *HI* (08/10/15 5:54 AM) Lymphocytes [20-46 6 % %] *LOW* (08/10/15 5:54 AM) Monocytes [4-11 %] 5 % (08/10/15 5:54 AM) Eosinophils [0-4 %] 4 % (08/10/15 5:54 AM) Basophils [0-2 %] 0 % (08/10/15 5:54 AM) Neutro Absolute 13.24 10*3 [1.90-7.00 10*3] *HI* (08/10/15 5:54 AM) Lymph Absolute 0.92 10*3 [0.80-3.30 10*3] (08/10/15 5:54 AM) [place] Absolute 0.77 10*3 [0.30-1.00 10*3] (08/10/15 5:54 AM) Eos Absolute 0.62 10*3 [0.00-0.50 10*3] *HI* (08/10/15 5:54 AM) Baso Absolute 0.01 10*3 [0.00-0.20 10*3] (08/10/15 5:54 AM) Nucleated RBC 0.0 /100 WBC Automated [0 /100 (08/10/15 5:54 AM) WBC] Differential Reviewed (08/10/15 5:54 AM) Smear Review By See pathology Pathologist (08/03/15 3:55 PM) Coagulation Most recent to 1 oldest [Reference Range]: INR [0.9-1.2] 1.1 (08/04/15 8:45 AM) PTT [25.0-35.0 58.9 seconds seconds] *HI* (08/07/15 5:00 AM) Chemistry Most recent to 1 oldest [Reference Range]: Sodium Lvl [136-144 133 mEq/L mEq/L] *LOW* (08/13/15 6:59 AM) Potassium Lvl 4.9 mEq/L [3.6-5.1 mEq/L] (08/13/15 6:59 AM) Chloride [99-109 106 mEq/L mEq/L] (08/13/15 6:59 AM) CO2 [22-32 mEq/L] 22 mEq/L (08/13/15 6:59 AM) AGAP [3-20] 5 (08/13/15 6:59 AM) BUN [4-20 mg/dL] 39 mg/dL *HI* (08/13/15 6:59 AM) Glucose Lvl [70-100 174 mg/dL mg/dL] *HI* (08/13/15 6:59 AM) Creatinine Lvl 3.95 mg/dL [0.44-1.03 mg/dL] *HI* (08/13/15 6:59 AM) eGFR [>60] 11 1 *ABN* (08/13/15 6:59 AM) Calcium Lvl 8.0 mg/dL [8.6-10.0 mg/dL] *LOW* (08/13/15 6:59 AM) Albumin Lvl [3.5-4.8 2.2 gm/dL gm/dL] *LOW* (08/13/15 6:59 AM) Total Protein 6.9 gm/dL [6.1-7.9 gm/dL] (08/03/15 12:36 PM) Globulin [1.9-4.3 3.9 gm/dL gm/dL] (08/03/15 12:36 PM) ALT [14-54 U/L] 13 U/L *LOW* (08/03/15 12:36 PM) AST [15-41 U/L] 15 U/L (08/03/15 12:36 PM) Alk Phos [26-104 55 U/L U/L] (08/03/15 12:36 PM) Bili Total [0.2-1.2 1.8 mg/dL 2 mg/dL] *HI* (08/03/15 12:36 PM) Iron [50-170 mcg/dL] 75 mcg/dL (08/03/15 12:36 PM) TIBC [286-569 273 mcg/dL mcg/dL] *LOW* (08/03/15 12:36 PM) Iron Sat [11-46 %] 27 % (08/03/15 12:36 PM) Transferrin [192-382 183 mg/dL mg/dL] *LOW* (08/03/15 12:36 PM) Ferritin Lvl [11-307 197 ng/mL ng/mL] (08/03/15 4:11 PM) LDH [98-192 U/L] 194 U/L *HI* (08/03/15 4:11 PM) Magnesium Lvl 1.7 mg/dL [1.8-2.5 mg/dL] *LOW* (08/10/15 5:53 AM) Phosphorus [2.4-4.7 3.8 mg/dL 3 mg/dL] (08/13/15 6:59 AM) Troponin [<0.06 1.69 ng/mL 4 ng/mL] *HHI* (08/04/15 9:03 PM) Lactic Acid Lvl 0.6 mEq/L [0.5-2.2 mEq/L] (08/03/15 12:36 PM) 25-Hydroxy D2 <7 ng/mL (08/04/15 4:23 AM) 25-Hydroxy D3 21 ng/mL (08/04/15 4:23 AM) 25-Hydroxy D Total 21 ng/mL 5 [30-74 ng/mL] *LOW* (08/04/15 4:23 AM) Vitamin B12 Lvl 1013 pg/mL [213-816 pg/mL] *HI* (08/03/15 5:16 PM) Folate Lvl [7.0-31.4 11.1 ng/mL ng/mL] (08/03/15 5:16 PM) PTH (Parathyroid 111.0 pg/mL Hormone) [12.0-88.0 *HI* pg/mL] (08/04/15 4:23 AM) Blood Glucose, 0 mg/dL Capillary [74-106 *LOW* mg/dL] (08/13/15 11:25 AM) Blood Glucose, High Capillary Out of (08/05/15 5:00 PM) Range Chol [0-200 mg/dL] 148 mg/dL (08/03/15 12:36 PM) Trig [0-150 mg/dL] 200 mg/dL *HI* (08/03/15 12:36 PM) HDL [>40 mg/dL] 26 mg/dL *ABN* (08/03/15 12:36 PM) LDL [0-100 mg/dL] 82 mg/dL (08/03/15 12:36 PM) VLDL Cholesterol 40 mg/dL [0-30 mg/dL] *HI* (08/03/15 12:36 PM) Cardiac Risk 5.7 [0.0-5.0] *HI* (08/03/15 12:36 PM) Hep Bs Ab Negative (08/04/15 4:23 AM) Hep Bs Ag Negative (08/04/15 4:23 AM) Hepatitis B Core Ab Negative Total (08/04/15 4:23 AM) HIV 1 and 2 Abs Non-reactive (08/04/15 4:23 AM) Hgb A1c [4.1-5.6 %] 6.8 % 6 *HI* (08/03/15 12:36 PM) eAvg Glucose 148.5 mg/dL 7 (08/03/15 12:36 PM) Haptoglobin [36-195 223 mg/dL mg/dL] *HI* (08/03/15 5:16 PM) 1Result Comment: Multiply eGFR results by 1.21 for race. 2Result Comment: Naproxen, specifically the metabolite O-desmethylnaproxen, may cause spurious elevation in Total Bilirubin levels. 3Result Comment: High dosages of liposomal Amphotericin B (AmBisome) therapy or other drug preparations that use a liposomal envelope to facilitate drug delivery may cause falsely elevated results for phosphorus. 4Result Comment: Critical value called, and read-back verified. Called to Desirae Cruz RN, F4MI, 08/04/2015 21:58. 5Result Comment: The desirable level of 25-Hydroxy Vitamin D Total(D2 + D3) is 30-74 ng/mL. A level consistently >200 is potentially toxic. 6Result Comment: Corrected result. Called to Valerie Drake RN, F4MI, 2015 16:29. Corrected result; previously reported as 5.9 on 08/03/15 at 15:40 by PRO 7Result Comment: Corrected result; previously reported as 122.6 on 08/03/15 at 15:40 by PRO Toxicology Most recent to 1 oldest [Reference Range]: U Amphetamine Scrn Negative (08/03/15 5:02 PM) U Cocaine Scrn Negative (08/03/15 5:02 PM) U Cannab Scrn Negative (08/03/15 5:02 PM) U Opiate Scrn Positive *ABN* (08/03/15 5:02 PM) U PCP Scrn Negative (08/03/15 5:02 PM) U Benzodiazepine Negative Scrn (08/03/15 5:02 PM) U Barbiturate Scrn Negative (08/03/15 5:02 PM) Methadone Lvl Negative (08/03/15 5:02 PM) Tricyclics Not Detected 1 (08/03/15 5:02 PM) 1Result Comment: Cut-off concentrations: Amphetamines: 1000 ng/mL Cocaine: 300 ng/mL Cannabinoid: 50 ng/mL Opiate: 300 ng/mL Phencyclidine (PCP): 25 ng/mL Benzodiazepine: 200 ng/mL Barbiturate: 200 ng/mL Methadone: 300 ng/mL Tricyclic: 300 ng/mL The urine drug screen assays are qualitative screens. A more specific GC/MS method must be performed to obtain a confirmed analytical result. Unconfirmed screening results must not be used for non-medical purposes(e.g. employment or legal testing) Urinalysis Most recent to 1 oldest [Reference Range]: UA Color Yellow (08/03/15 5:02 PM) UA Appear Cloudy *ABN* (08/03/15 5:02 PM) UA pH [5.0-8.0] 5.0 (08/03/15 5:02 PM) UA Leuk Est Pos 3+ [Negative] *ABN* (08/03/15 5:02 PM) UA Nitrite Negative [Negative] (08/03/15 5:02 PM) UA Protein Pos 2+ [Negative] *ABN* (08/03/15 5:02 PM) UA Glucose Pos 1+ [Negative] *ABN* (08/03/15 5:02 PM) UA Ketones Negative [Negative] (08/03/15 5:02 PM) UA Urobilinogen Negative [<1.0] (08/03/15 5:02 PM) UA Bili [Negative] Negative (08/03/15 5:02 PM) UA Blood [Negative] Pos 3+ *ABN* (08/03/15 5:02 PM) UA Spec Grav 1.015 [1.003-1.030] (08/03/15 5:02 PM) Type Clean Catch (08/03/15 5:02 PM) UA WBC [0-4 /HPF] >50 /HPF *ABN* (08/03/15 5:02 PM) UA RBC [0-2 /HPF] >50 /HPF *ABN* (08/03/15 5:02 PM) Epithelial Cells None Seen (08/03/15 5:02 PM) UA Bacteria Numerous *ABN* (08/03/15 5:02 PM) Crystals Amorphous (08/03/15 5:02 PM) Blood Bank Results Most recent to 1 oldest [Reference Range]: ABO/Rh A POS (08/13/15 9:20 AM) Antibody Screen Tube NEG (08/13/15 9:20 AM) Microbiology Reports TEST: Blood Culture1 STATUS: Auth (Verified) BODY SITE: SOURCE: Blood COLLECTED DATE/TIME: 08/03/15 8:48 PM Blood Culture No growth after 5 days of incubation. TEST: Blood Culture2 STATUS: Auth (Verified) BODY SITE: SOURCE: Blood COLLECTED DATE/TIME: 08/03/15 8:46 PM Blood Culture No growth after 5 days of incubation. TEST: Urine Culture STATUS: Auth (Verified) BODY SITE: SOURCE: Urine COLLECTED DATE/TIME: 08/03/15 5:02 PM Urine Culture - - - - - - - Positive urine culture (even if >100,000 cfu/ml) without presence of symptoms does not require antibiotic treatment unless the patient is or undergoing urinary surgery. Please document as bacteriuria. Escherichia coli >100,000 cfu/ml ORGANISM:Escherichia coli INTERPRETIVE DATA 1Pediatric bottle ONLY received 2Aerobic bottle ONLY received Immunizations No data available for this section Procedures Procedure Date Related Diagnosis Body Site Creation Fistula Arterial Venous Arm1 08/08/15 Insertion Dialysis Catheter (Right)2 08/08/15 Injection procedure for extremity venography 08/07/15 (including introduction of needle or intracatheter) Catheterization Heart Coronary Intervention 08/06/15 (Left, Groin)3 Catheterization Left Heart with Coronary 08/06/15 Angiography (Groin, Left)4 Arterial puncture, withdrawal of blood for 08/03/15 diagnosis Cataract extraction - L 05/23/09 Excision and [...]
--- OUTSIDE RECORDS SUMMARY | 2016-09-25 23:42 | XMS REPORT | Referral Summary ---
Author Author [facility] Organization [facility] Address Unknown Phone Unavailable Care Team Providers Care Jogger Operator Name Role Phone [facility] Primary Care Physician Unavailable Encounter [facility] [id number] Date(s): 03/07/15 - 03/07/15 [facility] [address] [place], [place] [address] Discharge Diagnosis: Therapeutic drug monitoring Discharge [...] BEDTIME, # 90 caps, 1 Refill(s), eRx: [facility], TAKE 3 CAPSULES BY MOUTH AT BEDTIME [...] 0 Refill(s) Start Date: 02/07/14 Status: Ordered [place] 10 mg-325 mg oral tablet 1 tabs, [...] osteoarthritis Ordered: Office Visit Level 4 Est 91666 2.Chronic renal failure syndrome Ordered: Office Visit Level 4 Est 32467 3.Therapeutic drug monitoring Ordered: Office Visit Level 4 Est 61869
--- OUTSIDE RECORDS SUMMARY | 2016-09-25 23:42 | XMS REPORT | Referral Summary ---
Author Author [facility] Organization [facility] Address Unknown Phone Unavailable Care Team Providers Care Printed Circuit Photographer Name Role Phone [facility] Primary Care Physician Unavailable Encounter [facility] [id number] Date(s): 03/07/15 - 03/07/15 [facility] [address], [place] [address] Discharge Diagnosis: Therapeutic drug monitoring Discharge [...] BEDTIME, # 90 caps, 1 Refill(s), eRx: [facility] [address], TAKE 3 CAPSULES BY MOUTH AT BEDTIME [...] 0 Refill(s) Start Date: 02/07/14 Status: Ordered [place] 10 mg-325 mg oral tablet 1 tabs, [...] osteoarthritis Ordered: Office Visit Level 4 Est 11082 2.Chronic renal failure syndrome Ordered: Office Visit Level 4 Est 68524 3.Therapeutic drug monitoring Ordered: Office Visit Level 4 Est 62263
--- OUTSIDE RECORDS SUMMARY | 2016-09-25 23:42 | XMS REPORT | Continuity of Care Document ---
Author Author [facility] Organization [facility] Address Unknown Phone Unavailable Allergies Active Description Code Type Severity Reaction Onset Reported/Identified Relationship to Patient Clinical Status Yes IV Contrast Drug Allergy Adverse Reaction 10/20/2011 Yes Nubain Drug Allergy Adverse Reaction 10/20/2011 Medications Problems Date Dx Coded Attending Type Code Diagnosis Diagnosed By 08/16/2012 Isai Gill MD Final 250.60 DM2/NOS W NEUR MANIF NSU 08/16/2012 Isai Gill MD Final 272.4 HYPERLIPIDEMIA NEC NOS 08/16/2012 Isai Gill MD Final 357.2 NEUROPATHY IN DIABETES 08/16/2012 Isai Gill MD Final 403.90 HTN CKD NOS I-IV/NOS 08/16/2012 Isai Gill MD Final 414.01 COR -[place] VESSEL 08/16/2012 Isai Gill MD Final 426.4 RT BUNDLE BRANCH BLOCK 08/16/2012 Isai Gill MD Final 427.89 OTH CARDIAC DYSRHYTHMIAS 08/16/2012 Isai Gill MD Final 585.9 CHRONIC KIDNEY DIS NOS 08/16/2012 Isai Gill MD Final 599.0 URINARY TRACT INF NOS 08/16/2012 Isai Gill MD Final 729.1 MYALGIA MYOSITIS NOS 08/16/2012 Isai Gill MD Admitting 786.50 CHEST PAIN NOS 08/16/2012 Isai Gill MD 786.59 CHEST PAIN NEC Procedures Results Encounters ACCT No. Visit Date/Time Discharge Status Pt. Type Provider Facility Loc./Unit Complaint [id number] 08/16/2012 16:32:00 2012 15:45:00 DIS Outpatient Isai Gill MD [facility] [address]
[2016-09-25 23:59] VITALS: Ht 160 cm; Wt 66.7 kg
--- NOTE | 2016-09-26 00:15 | NUR ---
PROVIDER DR HUSTON IN ROOM W/ PT.
--- NOTE | 2016-09-26 00:28 | ERPDOC ---
Departure Disposition Decision Date: Sep 26, 2016 Disposition Decision Time: 01:37 Disposition: 01 DISCHARGED HOME, SELF-CARE Impression Impression Impression: Primary Impression: Hypertension Additional Impression: Postoperative bleeding from incision Severity: Moderate Condition: Improved Seen By: Physician only Referrals: ISAMAR CLEMENTS MD (Family) Patient Instructions: Hypertension (ED) Problems/Meds/Labs Reviewed?: Yes Medications reviewed and manag: Yes Additional Instructions: Keep bandage on arm until evaluated by surgeon in the morning. Please take your blood pressure medication when you get home. Follow up care ordered?: Yes Mental Status: Alert, Oriented HPI - General Medical General Chief Complaint: Hypertension Stated Complaint: INCISION SITE BLEEDING Time Seen by Provider: 00:15 HPI - General Medical Initial Comments 76-year-old female with bleeding incision and hypertension. Patient normally takes 50 mg of blood pressure medication, her is uncertain of the exact name. She had surgery today to have a fistula placed, but never did take her blood pressure medication. Blood pressure is 230/98 and she has noticed some bleeding from the fistula site. Her wrapped the arm with paper towels and brought her into the emergency department for evaluation. She does have a central line placed on the right side as well. Allergies: Coded Allergies: iodine (Verified Allergy, Unknown, 10/23/15) nalbuphine HCl (Verified Allergy, Unknown, 10/23/15) Past History Past Medical History Metabolic: diabetes, hypertension Cardiac: CAD Neurological: headaches Surgical History Cardiac: cardiac bypass, cardiac cath Family History Family PMH: FOUND: hypertension Vaccines Hx Influenza Vaccination: No Social History Sexuality: male partner Physical Exam General Distress Description Slow bleeding from right forearm. Vitals and Pain First Documented Vital Signs Date Time Temp Pulse Resp B/P Pulse Ox O2 Delivery O2 Flow Rate FiO2 09/25/16 23:59 98.0 86 20 232/93 92 Room Air Weight: Kilograms: Height (feet): 5 Height (inches): 2.00 Triage Pain Scale: Normal Exams: Chest/Resp: Clear all [place], with good airflow, and symmetry bilaterally CV: Regular rate and rhythm, without murmur or gallop, Pulses 2+ all extremities, capillary refill, <2 seconds all ext., no pedal edema noted Neurologic: Patient is alert, and oriented, cranial nerves, motor/sensory/ cerebellar, exams w/o gross deficits, to observation Psychiatric: Patient exhibits, appropriate attention, emotion and affect Eyes (brief) Eyes Brief: found: EOMI, PERRL Integumentary (brief) Comments Incision site right upper arm for fistula is very slowly draining distally. Has bandages removed, no active bleeding is noted. Differential Diagnoses Considering: Other (uncontrolled hypertension, hypertensive urgency, postop bleeding.) Progress Results/Orders Orders Procedure Category Date Status Time Hydralazine PHA 09/26/16 In Process (Apresoline) 00:30 Medications Current ED Medications Hydralazine HCl (Apresoline) 10 mg O PO Last administered on 09/26/16t 00:39; Start 09/26/16 at 00:30 Progress Progress Patient was given 10 mg of hydralazine oral, this brought her pressure down to 180s over 90s which is acceptable knowing that the medication will continue to work. She is to take her normal blood pressure medication when she gets home. The wound itself stopped bleeding, once wrapped. Incision was checked prior to discharge and no more bleeding was occurring. Patient is following up in the morning with her surgeon. She is welcome to return if she has anymore problems with this tonight. ELLE PAIGE MD Sep 26, 2016 00:28
--- NOTE | 2016-09-26 00:39 | NUR ---
PO MED HYDRAZINE CHARTED W/ PT TOLERANCE.
--- OUTSIDE RECORDS SUMMARY | 2016-09-26 01:11 | XMS REPORT | Continuity of Care Document ---
Author Author [facility] Organization [facility] Address Unknown Phone Unavailable Support Name Relationship Address Phone JANICE KEVIN MD Caregiver [address] [place] [address] [address] [place] [phone] BRANDON SUTHERLAND Next Of Kin [address] [place] [address] Insurance Providers Payer Name Policy Number Subscriber Name Relationship Medicareadvantra Ppo [id number] Dot Sutherland 17 Self Problems Medical Problems [...] F (96.8 - 99.1) Temperature (Calculated Celsius) 36.56602 degrees C (36.0 - 37.3) Pulse Rate [...] Has specimen been collected/obtained? Y Urine Specific [place] July 13, 2014 5:57pm 1.020 - Has [...] July 13, 2014 5:31pm < 2 0-7 OE-Pki-W-Type Natriuretic Peptide July 13, 2014 5:31pm 4760 PG/ML H 0 -175 Rule in cut points: <50 years old=450; 50-75 years old=900; >75 years old=1800; When utilizing ProBNP rule-in cut points, adjustment for impaired renal function is typically not required. Procedures No known history of procedures. Encounters Encounter Location Date/Time Departed Emergency Room [facility] 07/13/14 4:28pm Recent Diagnosis
--- OUTSIDE RECORDS SUMMARY | 2016-09-26 01:12 | XMS REPORT | Continuity of Care Document ---
Author Author [facility]] Organization [facility]] Address Unknown Phone Unavailable Allergies Active Description [...] 08/16/2012 Isai Gill MD Final 414.01 COR [place] VESSEL 08/16/2012 Isai Gill MD Final 426.4 [...] Status Pt. Type Provider Facility Loc./Unit Complaint [id number] 08/16/2012 16:32:00 2012 15:45:00 DIS Outpatient Isai Gill MD [facility] on [address]
[2016-09-26 01:51] VITALS: BP 184/92; PULSE 86; RESP 18; TEMP 98; O2SAT 98
--- NOTE | 2016-09-26 01:51 | NUR ---
DISCHARGE PT GIVEN INSTRUCTIONS FOR HYPERTENSION AND WOUND CARE W/ FOLLOWUP VERBALIZED UNDERSTANDING AND SIGNED FORM, PT LEFT VIA WHEELCHAIR DUE TO CONT WEAKNESS POST OP FISTULA ALERT, VS CHARTED IN PAIN OR ACUTE DITRESS AND CONT NO ACTIVE BLEEDING.
== END 2016-09-26 01:51 | disposition home or self-care (01) ==
LOC: ED 23:37
DX: I10 Essential (primary) hypertension (principal); L76.22 Postprocedural hemorrhage of skin and subcutaneous tissue following other procedure; Y83.8 Other surgical procedures as the cause of abnormal reaction of the patient, or of later complication, without mention of misadventure at the time of the procedure; Y82.8 Other medical devices associated with adverse incidents
CPT/HCPCS: 99283; A9270